=== PATIENT | female | born 1970 | race American Indian/Alaskan Native ===

== ENCOUNTER 2021-12-25 16:31 | Emergency (ER) | payer SELFPAY ==
[2021-12-25] MEDS ORDERED: IBUPROFEN 800 MG TAB PO ONE (20:20)
[2021-12-25] MEDS ORDERED: hydroCHLOROthiazide 25 MG TAB PO ONE (20:20)
--- NOTE | 2021-12-25 20:46 | Emergency Department Report ---
<ROBERTA LEWIS - Last Filed: 12/25/21 20:42> ED General Adult HPI - General Chief complaint: Extremity Injury, Lower Stated complaint: RT ANKLE/FOOT PAIN Time Seen by Provider: 12/25/21 20:20 Source: patient Mode of arrival: Ambulatory Limitations: Physical Limitation - History of Present Illness Initial comments: Patient 51-year-old female who presents for bilateral lower extremity edema x1 week. This is a recurrent problem for the past couple of months. Patient states currently on losartan and amlodipine. Has not been able to get in to see primary care doctor for change in BP medications. Patient states secondary concern for lower extremity alopecia. There are no fevers no chills no fall injury or trauma. There is no numbness no tingling. There is no shortness of breath no cough no PND. There is been no fevers or chills. No chest pain or shortness of breath. Denies other symptoms. Symptoms generally relieved by rest however swelling returns during the day with repeated ambulation at work. Severity scale (0 -10): 7 - Related Data Home Medications Medication Instructions Recorded Confirmed Last Taken Acyclovir 400 mg PO BID 04/14/14 04/14/14 04/14/14 1 levETIRAcetam [Keppra] 500 mg PO BID 04/14/14 04/14/14 04/14/14 1 Previous Rx's Medication Instructions Recorded Last Taken Type Azithromycin [Zithromax Z-NATASHA] 250 mg PO DAILY #6 tablet 04/14/14 Unknown Rx hydroCHLOROthiazide [HCTZ] 12.5 mg PO DAILY #30 12/25/21 Unknown Rx Allergies Allergy/AdvReac Type Severity Reaction Status Date / Time No Known Allergies Allergy Verified 12/25/21 18:04 ED Review of Systems Constitutional: denies: chills, fever Eyes: denies: eye pain, eye discharge, vision change ENT: denies: ear pain, throat pain Respiratory: denies: cough, shortness of breath, wheezing Cardiovascular: denies: chest pain, palpitations Endocrine: no symptoms reported Gastrointestinal: denies: abdominal pain, nausea, diarrhea Genitourinary: denies: urgency, dysuria, discharge Musculoskeletal: other (Bilateral lower extremity swelling bilaterally right ankle is primary concern.). denies: back pain, joint swelling, arthralgia Skin: denies: rash, lesions Neurological: denies: headache, weakness, paresthesias Psychiatric: denies: anxiety, depression Hematological/Lymphatic: denies: easy bleeding, easy bruising ED Past Medical Hx - Past Medical History Hx Hypertension: No Hx CVA: No Hx Heart Attack/AMI: No Hx Congestive Heart Failure: No Hx Diabetes: No Hx Deep Vein Thrombosis: No Hx Pulmonary Embolism: No Hx GERD: No Hx Liver Disease: No Hx Renal Disease: No Hx Sickle Cell Disease: No Hx Arthritis: No Hx Headaches / Migraines: No Hx Seizures: Yes Hx Kidney Stones: No Hx Psychiatric Treatment: No Hx Asthma: No Hx COPD: No Hx Tuberculosis: No Hx Dementia: No Hx HIV: No Additional medical history: HIV - Surgical History Hx Coronary Stent: No Hx Open Heart Surgery: No Hx Pacemaker: No Hx Internal Defibrillator: No Hx Cholecystectomy: No Hx Appendectomy: No Hx Breast Surgery: No Additional Surgical History: trach - Social History Smoking Status: Never Smoker Substance Use Type: Alcohol - Medications Home Medications: Home Medications Medication Instructions Recorded Confirmed Last Taken Type Acyclovir 400 mg PO BID 04/14/14 04/14/14 04/14/14 History 1 Azithromycin [Zithromax Z-NATASHA] 250 mg PO DAILY #6 tablet 04/14/14 Unknown Rx levETIRAcetam [Keppra] 500 mg PO BID 04/14/14 04/14/14 04/14/14 History 1 hydroCHLOROthiazide [HCTZ] 12.5 mg PO DAILY #30 12/25/21 Unknown Rx ED Physical Exam - General Limitations: Physical Limitation General appearance: alert, in no apparent distress - Head Head exam: Present: normocephalic, normal inspection - Eye Eye exam: Present: PERRL, EOMI Pupils: Present: normal accommodation - ENT ENT exam: Present: normal exam, mucous membranes moist - Neck Neck exam: Present: normal inspection, full ROM. Absent: tenderness - Respiratory Respiratory exam: Present: normal lung sounds bilaterally. Absent: respiratory distress, wheezes, rales, rhonchi, stridor, chest wall tenderness - Cardiovascular Cardiovascular Exam: Present: regular rate, normal rhythm, normal heart sounds. Absent: systolic murmur, diastolic murmur, rubs, gallop - GI/Abdominal GI/Abdominal exam: Present: soft, normal bowel sounds. Absent: distended, tenderness - Rectal Rectal exam: Present: deferred - Extremities Exam Extremities exam: Present: normal inspection, full ROM, normal capillary refill, pedal edema. Absent: tenderness, calf tenderness (+1 right ankle) - Expanded Lower Extremity Exam Left Lower Leg exam: Present: swelling. Absent: tenderness, abrasion, laceration, ecchymosis, deformity, crepidus, dislocation, erythema, palpable cord, Harley's sign Ankle exam: Present: full ROM. Absent: tenderness, swelling Foot/Toe exam: Absent: full ROM, tenderness, swelling Neuro vascular tendon exam: Absent: pulse deficit, motor deficit, sensory deficit, tendon deficit Gait: Positive: observed and normal Right Lower Leg exam: Present: full ROM, swelling. Absent: tenderness, ecchymosis, deformity, crepidus, erythema, palpable cord, Harley's sign Ankle exam: Present: full ROM, swelling. Absent: tenderness, ecchymosis, deformity, crepidus, erythema Foot/Toe exam: Present: full ROM, swelling. Absent: tenderness, ecchymosis, deformity, crepidus, erythema Neuro vascular tendon exam: Absent: pulse deficit, motor deficit, sensory deficit, tendon deficit Gait: Positive: observed and normal - Back Exam Back exam: Present: normal inspection, full ROM. Absent: CVA tenderness (R), muscle spasm - Neurological Exam Neurological exam: Present: alert, oriented X3, CN II-XII intact, normal gait, reflexes normal. Absent: motor sensory deficit - Expanded Neurological Exam Expanded Patient oriented to: Present: person, place, time Speech: Present: fluid speech Motor strength exam: RUE: 5, LUE: 5, RLE: 5, LLE: 5 Best Eye Response (Florina): (4) open spontaneously Best Motor Response ([place]): (6) obeys commands Best Verbal Response ([place]): (5) oriented Florina Total: 15 - Psychiatric Psychiatric exam: Present: normal affect, normal mood - Skin Skin exam: Present: warm, dry, intact, normal color. Absent: rash ED Medical Decision Making - Medical Decision Making Distal pulses +2, [employer] less than 3 seconds bilateral range of motion is intact unrestricted. Negative Homans' sign no pain with dorsiflexion lower extremities. Heart sounds normal lung sounds are clear throughout there is no respiratory distress no PND. Pain is relieved with NSAIDs, swelling is relieved with rest and elevation. Plan add hydrochlorothiazide 12.5 mg p.o. daily follow-up primary care doctor in 2 to 3 days. Return to emergency department symptoms worsen. Patient verbalized agreement and understanding with discharge plan. Patient DC'd home in stable condition at this time. ED Disposition Clinical Impression: Lower extremity edema Disposition: HOME / SELF CARE / HOMELESS Is pt being admited?: No Does the pt Need Aspirin: No Condition: Stable Instructions: Edema, Peripheral Edema Additional Instructions: Medication as prescribed, follow-up with your doctor in 2 to 3 days. Return to emergency department should symptoms worsen. Prescriptions: hydroCHLOROthiazide [HCTZ] 12.5 mg PO DAILY #30 Referrals: JACQUELINE BULL MD [Staff Physician] - 3-5 Days Forms: Work/School Release Form(ED) Time of Disposition: 20:49 <ANTHONY VALDES - Last Filed: 12/27/21 09:42> ED Review of Systems ROS: Stated complaint: RT ANKLE/FOOT PAIN Other details as noted in HPI ED Course Vital Signs 12/25/21 12/25/21 18:02 21:06 Temperature 98.5 F Pulse Rate 78 78 Respiratory 16 18 Rate Blood Pressure 120/73 120/70 [Right] O2 Sat by Pulse 100 100 Oximetry ED Medical Decision Making - Medical Decision Making I have reviewed the PA/GLOBAL LEAD's note and plan of care. I was available for consultation as needed at all times during the patient's visit in the emergency department but was not consulted on this case. Critical care attestation.: If time is entered above; I have spent that time in minutes in the direct care of this critically ill patient, excluding procedure time.
[2021-12-25 21:16] VITALS: BP 120/70
== END 2021-12-25 21:06 | disposition home or self-care (01) ==
LOC: ED 16:31
DX: R60.0 Localized edema (principal); Z79.899 Other long term (current) drug therapy
CPT/HCPCS: 99282